=== PATIENT | female | born 1985 | race Caucasian/White ===

== ENCOUNTER → 2021-01-10 14:53 | Emergency (ER) | payer OTHER ==
[~2021-01-10 14:53] MED LIST: NAPROSYN500 MG PO
== END | disposition home or self-care (01) ==
LOC: ER1 14:53
DX: R11.0 Nausea (principal); Z88.0 Allergy status to penicillin; Z90.710 Acquired absence of both cervix and uterus; Z20.822 Contact with and (suspected) exposure to COVID-19
CPT/HCPCS: 99283; U0003

== ENCOUNTER 2022-01-02 13:36 | Emergency (ER) | payer OTHER ==
[2022-01-02 15:07] LABS: HEMOGLOBIN 14.1 gm/dl (12.3-15.3); RED BLOOD COUNT 4.28 M/UL (4.00-5.10); WHITE BLOOD COUNT 9.2 K/UL (4.5-11.0)
[2022-01-02 15:33] LABS: BUN/CREATININE RATIO 13 (0-10)
[2022-01-02] MEDS ORDERED: VOLTAREN ARTHRI20 GM TP (16:01)
== END 2022-01-02 16:43 | disposition home or self-care (01) ==
LOC: ER1 13:36
PROVIDERS: Physician Assistant Medical
DX: M25.561 Pain in right knee (principal); F17.210 Nicotine dependence, cigarettes, uncomplicated
CPT/HCPCS: 73564; 80053; 84550; 85025; 85652; 86140; 99283